=== PATIENT | male | born 1970 | race Caucasian/White ===

== ENCOUNTER 2022-02-23 19:22 | Inpatient (IN) | payer OTHER ==
[~2022-02-23] VITALS: Ht 180.3 cm; Wt 90.5 kg
[2022-02-23 20:13] LABS: Albumin/Globulin Ratio 1.3 (0.8-1.8); Bilirubin, Total 1.2 mg/dL (0.1-1.0); Calcium, Blood 9.3 mg/dL (8.5-10.1); Creatinine, Blood 1.23 mg/dL (0.60-1.20); Potassium, Blood 4.5 mmol/L (3.5-5.5)
[2022-02-23 20:21] LABS: BASOPHILS ABSOLUTE AUTO 0.08 K/mm3 (0.00-0.23); BASOPHILS PERCENT AUTO 1 % (0-2); EOSINOPHILS PERCENT AUTO 2 % (0-6); Hemoglobin 14.4 g/dL (13.5-17.5); IMMATURE GRAN ABSOLUTE AUTO 0.05 K/mm3 (0.00-0.10); IMMATURE GRAN PERCENT AUTO 1 % (0-1); LYMPHOCYTES ABSOLUTE AUTO 2.06 K/mm3 (0.84-5.20); LYMPHOCYTES PERCENT AUTO 19 % (21-46); MONOCYTES ABSOLUTE AUTO 0.66 K/mm3 (0.16-1.47); MONOCYTES PERCENT AUTO 6 % (4-13); Mean Corpuscular HGB 27.8 pg (26.0-34.0); Mean Corpuscular Volume 87 fL (80-100); Mean Platelet Volume 10.9 fL (9.1-12.4); NEUTROPHILS ABSOLUTE AUTO 7.79 K/mm3 (1.96-9.15); NEUTROPHILS PERCENT AUTO 72 % (41-73); Platelet Count 279 K/mm3 (150-400); RDW Coefficient Variation 14.1 % (11.7-14.2); RDW Standard Deviation 44.7 fL (35.1-46.3); Red Blood Cell Count 5.18 M/mm3 (4.30-5.90); White Blood Cell Count 10.84 K/mm3 (4.00-11.30)
[2022-02-23 20:24] LABS: Influenza A, PCR NEGATIVE (NEGATIVE); Influenza B, PCR NEGATIVE (NEGATIVE); Resp Syncytial Virus, PCR NEGATIVE (NEGATIVE)
[2022-02-23 20:27] LABS: SARS-Cov-2 (COVID-19) PCR, MMC POSITIVE (NEGATIVE)
[2022-02-24 00:44] LABS: U Amphetamine Screen Not Detected; U Barbituate Screen Not Detected; U Benzodiazapine Screen Not Detected; U Buprenorphine Screen Not Detected; U Cannabinoids Screen Not Detected; U Cocaine Screen Not Detected; U Methadone Screen Not Detected; U Methamphetamine Screen Not Detected; U Opiates Screen Not Detected; U Oxycodone Screen Not Detected; U Phencyclidine Screen Not Detected; U Propoxyphene Screen Not Detected
--- NOTE | 2022-02-24 05:58 | NUR ---
SHIFT SUMMARY ASSUMED CARE OF PT AT 0030. PT IS A/OX4. HEART SOUNDS REGULAR BUT TACHY. LUNG SOUNDS CLEAR BUT DIMINISHED AT BASES. PT SATURATIONS 95% AND AOBVE ON RA BUT PT IS VERY DYSPNIC WITH ACTIVITY. AND C/O SOB AFTER WALKING AROUND THE ROOM. PT INDEPENDENT IN ROOM. TOOK A SHOWER THIS AM.
[2022-02-24 11:27] LABS: Anion Gap 9 mmol/L (6-16); Blood Urea Nitrogen 33 mg/dL (8-24); Bun/Creatinine Ratio 22.1 (12.0-20.0); CHOL/HDL RATIO 3.9; CO2, Blood 22 mmol/L (21-32); Calcium, Blood 9.1 mg/dL (8.5-10.1); Chloride, Blood 108 mmol/L (98-108); Cholesterol 131 mg/dL (50-200); Creatinine, Blood 1.49 mg/dL (0.60-1.20); Glomerular Filtration Rate 57 (60-); Glucose, Blood 120 mg/dL (70-99); HDL Cholesterol 34 mg/dL (>39); LDL/HDL RATIO 1.8; Low Density Lipoprotein Chol 60 mg/dL (0-110); Potassium, Blood 4.1 mmol/L (3.5-5.5); Sodium, Blood 139 mmol/L (136-145); Triglycerides 185 mg/dL (30-160); Very Low Density Lipoprot Chol 37 mg/dL (6-32)
--- NOTE | 2022-02-24 11:52 | NUR ---
LASIX ADMINISTERED PER EMAR, MEDICAL FLOOR RN AWARE OF ADMINISTRATION AND WILL RECHECK VITALS UPON REACHING MEDICAL FLOOR POST PASIX ADMINISTRATION. PT REPORT TO MEDICAL FLOOR RN. PT IN ROOM VISITING WITH GUESTS, TALKING IN FULL SENTENCES, EATING LUNCH W/O DIFFCULTY. PT REMAINS ON RA.
--- NOTE | 2022-02-24 16:45 | NUR ---
DR MEADE NOTIFIED OF BP OF 155/130 AFTER RECEIVING NEW MEDICATIONS PER EMAR. HE STATES HE WILL REVIEW MEDICATIONS AND ORDERED THIS NURSE TO CALL CARDIOLOGY CONSULT. AWAITING FURTHER ORDERS AT THIS TIME.
--- NOTE | 2022-02-24 19:30 | NUR ---
SHIFT SUMMARY PT TRANSFERED FROM PCU THIS SHIFT. PT DENIES PAIN AND N/V THOUGH SOB WITH EXERTION AND DISCUSSION. TACHYCARDIA NOTED AND HTN. DR URIBE, AWAITING CARDIOLOGY CONSULT, WHICH WAS CALLED BY THIS NURSE. REPORT GIVEN TO PRESSER MACHINE NURSE WHO ASSUMES CARE AT THIS TIME. BED IN LOW POSITION, CALL LIGHT WITHIN REACH.
[2022-02-25 05:21] LABS: Calcium, Blood 8.7 mg/dL (8.5-10.1); Creatinine, Blood 1.29 mg/dL (0.60-1.20); Potassium, Blood 3.7 mmol/L (3.5-5.5); Thyroid Stimulating Hormone 2.76 uIU/mL (0.360-4.800)
--- NOTE | 2022-02-25 05:44 | NUR ---
NO ACUTE CHANGES, PT SLEPT THROUGH THE NIGHT.
--- NOTE | 2022-02-25 17:48 | NUR ---
SHIFT SUMMARY PT AXO, PLEASANT AND COOPERATIVE WITH CARE. PT STATES THAT HE IS MORE SHORT OF BREATH THAN YESTERDAY AND WISHES HE COULD HAVE MORE LASIX BUT UNDERSTANDS WHY IT IS CONTRAINDICATED AT THIS TIME. PT UP AD COURT IN ROOM. SOB WITH EXERTION, DISCUSSIN AND LAYING. IV PATENT AND SALINE LOCKED. PT EDUCATION DISCUSSED WITH PATIENT REGARDING MEDICATIONS, HEART FAILURE AND CARDIAC DIET. PT REMINDED OF STRESS TEST NPO RULES. BED IN LOW POSITION, CALL LIGHT WITHIN REACH. PT DENIES PAIN AND NV.
[2022-02-26 05:03] LABS: BASOPHILS ABSOLUTE AUTO 0.05 K/mm3 (0.00-0.23); BASOPHILS PERCENT AUTO 1 % (0-2); EOSINOPHILS PERCENT AUTO 2 % (0-6); Hematocrit 42.9 % (37.0-53.0); IMMATURE GRAN ABSOLUTE AUTO 0.02 K/mm3 (0.00-0.10); IMMATURE GRAN PERCENT AUTO 0 % (0-1); LYMPHOCYTES ABSOLUTE AUTO 2.62 K/mm3 (0.84-5.20); LYMPHOCYTES PERCENT AUTO 26 % (21-46); MONOCYTES PERCENT AUTO 8 % (4-13); Mean Corpuscular HGB Conc 32.6 g/dL (31.5-36.5); Mean Corpuscular Volume 86 fL (80-100); Mean Platelet Volume 11.5 fL (9.1-12.4); NEUTROPHILS ABSOLUTE AUTO 6.45 K/mm3 (1.96-9.15); NEUTROPHILS PERCENT AUTO 64 % (41-73); Platelet Count 245 K/mm3 (150-400); RDW Coefficient Variation 14.3 % (11.7-14.2); RDW Standard Deviation 43.5 fL (35.1-46.3); White Blood Cell Count 10.14 K/mm3 (4.00-11.30)
[2022-02-26 05:40] LABS: Bun/Creatinine Ratio 21.9 (12.0-20.0); Calcium, Blood 8.8 mg/dL (8.5-10.1); Creatinine, Blood 1.14 mg/dL (0.60-1.20)
--- NOTE | 2022-02-26 05:47 | NUR ---
PT AGREES TO NPO AT MIDNIGHT. TACO BARAHONA AND SODA FOUND SCATTERED IN ROOM AT SHIFT CHANGE WITH CANDY. PT EDUCATED ON DIET. NO ACUTE CHANGES THROUGH THE NIGHT.
--- NOTE | 2022-02-26 17:53 | NUR ---
SHIFT SUMMARY PATIENT A&OX4. INDEP IN ROOM. DENIED SOB AT BEGINNING OF SHIFT BUT LATER ENDORSED SOB. DENIES CHEST PAIN. STRESS TEST COMPLETED THIS AM SHOWING BLOCKAGE. PLAN FOR CATHERIZATION IN THE AM. TO BE NPO AFTER MN, PATIENT AWARE. WILL CONTINUE TO MONITOR.
--- NOTE | 2022-02-27 05:11 | NUR ---
PT WALKED AROUND THE UNIT AND HAD A VERY HARD TIME CATCHING HIS BREATH WHEN HE RETURNED. VITALS STABLE, PT CANNOT TOLERATE VERY MUCH ACTIVITY. NPO AT MIDNIGHT, NO OTHER ACUTE CHANGES.
[2022-02-27 06:19] LABS: Bun/Creatinine Ratio 21.6 (12.0-20.0); Calcium, Blood 9.2 mg/dL (8.5-10.1); Creatinine, Blood 1.16 mg/dL (0.60-1.20); Potassium, Blood 4.2 mmol/L (3.5-5.5)
--- NOTE | 2022-02-27 09:40 | NUR ---
PT ARRIVED TO RECOVERY ROOM IN BED. RIGHT RADIAL TR BAND SITE SOFT NON-TENDER NO HEMATOMA,NO PULSATILE BLEEDING AND WRIST BOARD IN PLACE. DR CANTU IN ROOM WITH PT AND HIS PARTNER.
--- NOTE | 2022-02-27 11:36 | NUR ---
1000 CALLED [facility]AL [employer] NAPI[employer], REPORT GIVEN, PT TO [facility] FOR ANGIOGRAM
--- NOTE | 2022-02-27 19:23 | NUR ---
DAY SHIFT SUMMARY PT ARRIVED FROM HEART CENTER @ 1005 THIS AM. TR BAND TO R RADIAL SITE NOTED WITHOUT HEMATOMA OR DRAINAGE. PT ORIENTED X4, VSS. SR/ST ON TELEMETRY. PLEASANT AND COOPERATIVE, SOME ANXIETY NOTED. EDUCATED GIVEN ON HF S/S AND MANAGEMENT INCLUDING FLUID RESTRICTION, SODIUM RESTRICTION, AND DAILY WEIGHTS. TR BAND REMOVED 2-3ML AT A TIME AND REMOVED AT APPROXIMATELY 1300 W/O HEMATOMA. TEGADERM PLACED. WILL PASS ON TO OMAR RN
--- NOTE | 2022-02-28 04:51 | NUR ---
SHIFT SUMMARY PT ALERT AND ORIENTED X 4. HR STABLE. BP STABLE. MAP ABOVE 65. NO CP OR PRESSURE T/O SHIFT. PT REQUESTING EDUCATION REGARDING HF, MEDICATIONS AND LIFESTYLE CHANGES. PT PROVIDED WITH EDUCATION. WILL PASS ONTO ANALIA RN THAT PT REQUESTING MORE EDUCATION PRIOR TO DISCHARGE. PT SLEEPING T/O SHIFT. FEELS MORE COMFORTABLE SLEEPING WITH HOB ELEVATED D/T ORTHOPNEA. OXYGEN SATURATION MAINATINED ABOVE 95% ON RA. IND IN ROOM. ABLE TO USE URINAL AT BEDSIDE. R RADIAL SITE WNL. TEGADERM AND ARM BOARD IN PLACE. RADIAL PULSE STRONG. CALL LIGHT WITHIN REACH. WILL CONT TO MONITOR UNTIL REPORT GIVEN TO DAYSBEBETO RN.
[2022-02-28 05:07] LABS: Bun/Creatinine Ratio 24.1 (12.0-20.0); Calcium, Blood 8.7 mg/dL (8.5-10.1); Creatinine, Blood 1.16 mg/dL (0.60-1.20); Potassium, Blood 3.8 mmol/L (3.5-5.5)
--- NOTE | 2022-02-28 07:55 | NUR ---
AM ASSESSMENT: Pt sitting up in bed. LS clear. HR reg. BT positive. Denies pain or SOB at this time. Does have some dyspnea with exertion but pt states that this has improved a lot. Does have an occasional non-productive cough. Pulses palp. No edema noted in extrimities. Pt does state that he feels like he has some swelling in his abd. R radial site with tegaderm and arm board in place. No swelling, oozing or bleeding noted. Pt very receptive to education about heart failure. Pt seems very motivated to make changes to improve his health. Call light in reach. Denies needs at this time. Will monitor.
[2022-02-28] MEDS ORDERED: ATOR40TA PO (13:45)
[2022-02-28] MEDS ORDERED: FURO40 PO (13:46)
[2022-02-28] MEDS ORDERED: METO50 PO (13:47)
[2022-02-28] MEDS ORDERED: OMEGA-3 FISH O1 EAC5 PO (13:49)
[2022-02-28] MEDS ORDERED: ENTRESTO 24 MG1 EACH PO (13:49)
--- NOTE | 2022-02-28 15:00 | NUR ---
DISCHARGE: Pt and frined given printed and written discharge instructions. Denies questions, verbalized understanding. IV was discontinued, cath intact. Pt left via w/c. Stable at time of discharge.
== END 2022-02-28 15:05 | disposition home or self-care (01) | DRG 286 ==
LOC: ER 19:22 → PCU 19:23 → MEDS 19:23 → PCU 02-24 00:28 → MEDS 02-24 12:46 → PCU 02-27 09:37
PROVIDERS: Emergency Medicine; Family Medicine; Student in an Organized Health Care Education/Training Program; ADMIT Internal Medicine
PROC: 8E0ZXY6 Isolation (ICD-10-PCS; principal; 2022-02-24)
PROC: 4A023N7 Measurement of Cardiac Sampling and Pressure, Left Heart, Percutaneous Approach (ICD-10-PCS; 2022-02-27)
PROC: B2111ZZ Fluoroscopy of Multiple Coronary Arteries using Low Osmolar Contrast (ICD-10-PCS; 2022-02-27)
PROC: B2151ZZ Fluoroscopy of Left Heart using Low Osmolar Contrast (ICD-10-PCS; 2022-02-27)
DX: I11.0 Hypertensive heart disease with heart failure (principal); I50.21 Acute systolic (congestive) heart failure; U07.1 COVID-19; N17.9 Acute kidney failure, unspecified; I43 Cardiomyopathy in diseases classified elsewhere
CPT/HCPCS: 0241U; 36415; 71045; 76937; 78452; 80048; 80053; 80061; 83036; 83880; 84443; 84484; 85025; 85379; 93005; 93010; 93017; 93454; 96372; 96374; 96375; 96376; 99152; 99285-25; A9270; A9500; C1769; C1887; C1894; C8929; G0378; J0706; J1644; J1650; J1940; J2250; J2785; J3010; J7030; J7040; Q9957; Q9967

== ENCOUNTER 2022-03-10 09:36 | Day surgery (SDC) | payer OTHER ==
[~2022-03-10] VITALS: Ht 180.3 cm; Wt 87.5 kg
[~2022-03-10 09:36] MED LIST: ATOR40TA PO; ENTRESTO 24 MG1 EACH PO; FURO40 PO; METO50 PO; OMEGA-3 FISH O1 EAC5 PO
--- NOTE | 2022-03-10 14:10 | NUR ---
patient returned to heart center recovery room via recliner.responds appropriately to questions. tr band in place to right radial artery. no hematoma, no bleeding.
--- NOTE | 2022-03-10 15:00 | NUR ---
Dr Duke here to discuss findings wioth patient
--- NOTE | 2022-03-10 15:15 | NUR ---
patient ambulated to rest room. tolerated well.
--- NOTE | 2022-03-10 16:16 | NUR ---
VERBAL REVIEW OF DISCHARGE INSTRUCTIONS
--- NOTE | 2022-03-10 17:02 | NUR ---
patient verbalized understanding of diacharge instructions and precautions. no further questions. TR band removed. site soft and nontender. no bleeding , no hematoma. cloth dot dressing placed and wrist board in place. patient states that hedoes not need an arm sling to remind him not to use the right arm. iv site dced with catheter intact. patient taken via wheel cahir to waiting car. friend driving.
== END 2022-03-10 16:50 | disposition home or self-care (01) ==
LOC: MHTC 09:36
DX: I25.10 Atherosclerotic heart disease of native coronary artery without angina pectoris (principal); I11.0 Hypertensive heart disease with heart failure; I50.20 Unspecified systolic (congestive) heart failure; F17.220 Nicotine dependence, chewing tobacco, uncomplicated; Z86.16 Personal history of COVID-19
CPT/HCPCS: 76937; 85347; 92920; 93571; 99152; 99153; A9270; C1769; C1887; C1894; J1644; J2250; J3010; J7030; J7040; Q9967